=== PATIENT | male | born 1950 | race Caucasian/White ===

== ENCOUNTER → 2021-08-10 09:04 | Outpatient (CLI) | payer MEDICARE, OTHER, SELFPAY ==
--- NOTE | 2021-08-10 09:07 | DI.RAD.S_ITS ---
PROCEDURE: FL BARIUM SWALLOW INDICATIONS: dysphagia COMPARISON: None. FINDINGS: Function: There is normal esophageal peristalsis. No elicited gastroesophageal reflux. Morphology: Air-contrast images irregular stenosis of the distal esophagus at the gastroesophageal junction. Irregular narrowing involves the distal 6 centimeters of the esophagus and the esophagus is narrowed to 9 millimeters in diameter. IMPRESSION: Irregular stenosis of the distal esophagus at the GE junction highly suspicious for esophageal carcinoma. Recommend gastroenterology consultation for endoscopy and potential biopsy. Dictated by: Katie Garcia MD, PhD on 08/10/2021 at 12:05 Approved by: Katie Garcia MD, PhD on 08/10/2021 at 12:21
[2021-08-10 12:24] LABS: Add Manual Diff / Slide Review NO; Basophils Absolute Auto 0 /uL (0-100); Basophils Percent Auto 0.7 % (0-2); Eosinophils Absolute Auto 300 /uL (0-450); Eosinophils Percent Auto 4.3 % (2-4); Hematocrit 36.9 % (41-53); Hemoglobin 12.3 g/dL (13.5-17.5); Lymphocytes Absolute Auto 1200 /uL (1100-4500); Lymphocytes Percent Auto 18.2 % (25-40); Mean Corpuscular HGB Conc 33.2 % (30-36); Mean Corpuscular Hemoglobin 30.3 PG (26-34); Mean Corpuscular Volume 91.3 fL (80-100); Monocytes Absolute Auto 700 /uL (0-900); Neutrophils Absolute Auto 4200 /uL (1500-7000); Neutrophils Percent Auto 65.8 % (50-75); Platelet Count 302 X10^3/uL (150-400); Red Blood Cell Count 4.04 X10^6/uL (4.5-5.9); Red Cell Distribution Width 13.9 % (11.6-14.8); White Blood Cell Count 6.3 X10^3/uL (4.5-11.0)
[2021-08-10 13:47] LABS: Alanine Aminotransferase 16 IU/L (<50); Albumin 3.6 g/dL (3.5-5.0); Albumin Globulin Ratio 1.4 (1.0-2.8); Alkaline Phosphatase 96 U/L (38-126); Aspartate Aminotransferase 28 IU/L (17-59); BUN Creatinine Ratio 11.9 (6-22); Bilirubin Total 0.5 mg/dL (0.2-1.3); Blood Urea Nitrogen 12 mg/dL (9-20); Calcium 9.1 mg/dL (8.4-10.2); Carbon Dioxide 26 mmol/L (22-32); Chloride 108 mmol/L (98-107); Cholesterol 109 mg/dL (140-199); Estimated Glomerular Filt Rate > 60.0 mL/min (>60); Globulin 2.5 g/dL (1.7-4.1); Glucose 88 mg/dL (80-110); HDL Cholesterol 33 mg/dL (40-60); HEMOLYSIS < 15 (0-50); LDL Cholesterol Calculated 56 mg/dL (<100); Potassium 4.9 mmol/L (3.4-5.1); Sodium 139 mmol/L (137-145); Total Protein 6.1 g/dL (6.3-8.2); Triglycerides 98 mg/dL (35-150)
== END ==
PROVIDERS: Family Provider Internal Medicine; PCP Internal Medicine; Referring Provider Internal Medicine; Visit Provider Internal Medicine
DX: R13.10 Dysphagia, unspecified (principal); K22.2 Esophageal obstruction; Z13.1 Encounter for screening for diabetes mellitus; Z13.220 Encounter for screening for lipoid disorders; Z13.6 Encounter for screening for cardiovascular disorders
CPT/HCPCS: 36415; 74221; 80053; 80061; 85025

== ENCOUNTER → 2021-08-17 10:26 | Outpatient (CLI) | payer MEDICARE, OTHER, SELFPAY | PROVIDERS: Family Provider Internal Medicine; PCP Internal Medicine; Referring Provider Internal Medicine; Visit Provider Internal Medicine | DX: R13.10 Dysphagia, unspecified (principal); K22.89 Other specified disease of esophagus; Z53.8 Procedure and treatment not carried out for other reasons | CPT/HCPCS: 71260; 74160 ==

== ENCOUNTER → 2021-08-18 14:15 | Outpatient (CLI) | payer MEDICARE, OTHER, SELFPAY ==
[2021-08-18 14:38] LABS: COVID19 -Nasal RAPID Negative (Negative)
== END ==
PROVIDERS: Family Provider Internal Medicine; PCP Internal Medicine; Referring Provider Surgery; Visit Provider Surgery
DX: Z01.812 Encounter for preprocedural laboratory examination (principal); Z20.822 Contact with and (suspected) exposure to COVID-19; R13.19 Other dysphagia
CPT/HCPCS: 87635; 99212; C9803; G0463

== ENCOUNTER 2021-08-20 08:49 | Day surgery (SDC) | payer MEDICARE, OTHER, SELFPAY ==
--- NOTE | 2021-08-20 | PATH_ITS ---
[facility] Accession Number: [id number] . 01 Material submitted: . esophagus - ESOPHAGEAL MASS . 02 Diagnosis: Esophageal Mass, Biopsies: Invasive adenocarcinoma, moderately differentiated, intestinal type. Negative for intestinal metaplasia on AB/PAS stain. Positive (3+) for HER2 overexpression by immunohistochemistry. . RESULTS: HER2 (4B5): Positive (3+). . COMMENT: Testing performed on Block Number: A1. The criteria used is based on the ToGA Trial 6 for Scoring HER2 Expression by Immunohistochemistry (IHC) in Gastric and Esophagogastric Junction Adenocarcinoma. . *This test was developed and its performance characteristics determined by [facility]. It has not been cleared or approved by the U.S. Food and Drug Administration. The FDA has determined that such clearance or approval is not necessary. This test is used for clinical purposes. It should not be regarded as investigational or for research. MRV 08/27/2021 1303 Local . 02 Comment: As part of routine quality management coordinator, Dr. Garcia has reviewed this case and agrees with the diagnosis of invasive adenocarcinoma. The finding of adenocarcinoma was discussed between Dr. Moody and Dr. Mayfield on 08/26/2021. . 02 Electronically signed: . Robert Mayfield MD, PhD, Pathologist NPI- [id number] . 01 Gross description: . The specimen is received in formalin, labeled esophageal mass and consists of three mcgee-pink fragments of soft tissue measuring 0.8 x 0.7 x 0.2 cm in aggregate. The specimen is entirely submitted in cassette A1. (EA:[id number]) /MRV 08/21/2021 1231 Local . 02 Microscopic: . A. An AB/PAS stain is performed to evaluate for intestinal metaplasia, and is negative for goblet cells. A control stain shows appropriate reactivity. . 02 Pathologist provided ICD-10: C15.9 . 02 CPT . 043144, [id number], [id number] Performed at: 01 [facility] [address] [place] [address], [place], [place] [id number] MD Yon Mercedes MD Phone: [phone] Performed at: 02 [facility] [address] [place], [place] [id number] MD Noelle Garcia MD Phone: [phone]
[2021-08-20 09:07] VITALS: BP 131/77; PULSE 69; RESP 16; TEMP 36.4; O2SAT 98; BMI 29.5
[2021-08-20] MEDS: LACTATED RINGERS 1,000 ML 42 ML IV (09:20)
--- NOTE | 2021-08-20 10:15 | PM.PREOP ---
Pre-operative Note COVID-19 COVID-19 status: Negative Result date/Date tested (Pos, Neg/Pending): 08/18/21 Interval Note History & Physical reviewed/Exam performed by Physician: Yes Changes to H&P: No ASA Class (for procedural sedation): II
[2021-08-20] MEDS: LIDOCAINE 4% SOLN 50 ML 20 ML TOP (10:24)
[2021-08-20] MEDS: fentaNYL 250 MCG/5 ML INJ IV (10:25)
[2021-08-20] MEDS: MIDAZOLAM 5 MG/5 ML VIAL IV (10:27)
--- NOTE | 2021-08-20 10:39 | PM.OP.EGD ---
Operative Date/Time/Diagnoses Date of procedure: 08/20/21 Time of procedure: 10:39 Pre-op diagnosis: Dysphagia Post-op diagnosis: same Procedure & Clinicians Study performed: Esophagogastroduodenoscopy Same procedure as scheduled: Yes Indications: Dysphagia and esophageal mass on imaging Surgeon: Eliazar Moody Procedure Notes SCOAP/Timeout: Yes Procedure in detail: A timeout was performed. A bite blocked was placed. The patient was positioned in the left lateral decubitus position. The endoscope was inserted through the bite block passed down the esophagus. There is a large fungating mass in the distal esophagus. The scope could not be safely passed through the stricture into the stomach. Multiple biopsies were taken from the mass using forceps. Remainder of the esophagus was normal. The scope was withdrawn. The patient was awakened and brought to recovery. Findings: possible cancer Impression: Distal esophageal mass concerning for esophageal cancer Post-procedure Disposition: PACU
[2021-08-20 10:42] VITALS: BP 119/82; PULSE 69; RESP 17; TEMP 36.3; O2SAT 89
[2021-08-20 10:43] VITALS: BP 119/66; PULSE 81; RESP 20; O2SAT 95
[2021-08-20 10:48] VITALS: BP 113/72; PULSE 51; RESP 17; O2SAT 98
[2021-08-20 10:53] VITALS: BP 101/75; PULSE 56; RESP 16; TEMP 36.5; O2SAT 98
--- NOTE | 2021-08-20 11:00 | SUR.PHASEI ---
Patient had upper endoscopy and a mass was seen concerning cancer. Dr Moody talked with patient. Will order tests for him, and was told to only drink liquids. Dr Modoy talked with patients
[2021-08-20 11:03] VITALS: BP 112/64; PULSE 60; RESP 14; TEMP 36.4; O2SAT 99
== END 2021-08-20 11:24 | disposition home or self-care (01) ==
PROVIDERS: Family Provider Internal Medicine; PCP Internal Medicine; Referring Provider Surgery; Visit Provider Surgery
PROC: 0DJ08ZZ Inspection of Upper Intestinal Tract, Via Natural or Artificial Opening Endoscopic (ICD-10-PCS; CPT 43235; principal; 2021-08-20 10:15)
DX: C15.9 Malignant neoplasm of esophagus, unspecified (principal)
CPT/HCPCS: 43239; J2250; J3010

== ENCOUNTER → 2021-08-31 10:40 | Outpatient (CLI) | payer MEDICARE, OTHER, SELFPAY ==
--- NOTE | 2021-08-31 10:43 | DI.CT.S_ITS ---
PROCEDURE: CT CHEST ABD PEL W CON INDICATIONS: Esophageal neoplasm TECHNIQUE: After the administration of oral and intravenous contrast, axial sections acquired from the supraclavicular neck to the pubic symphysis. Coronal and sagittal reformats were performed. For radiation dose reduction, the following was used: automated exposure control, adjustment of mA and/or kV according to patient size. COMPARISON:None. FINDINGS: Image quality: Excellent. CHEST: Lower Neck: No enlarged lymph nodes. Thyroid: Within normal limits. Axillae: No enlarged lymph nodes. Chest Wall: Atrophy of the right supraspinatus musculature. Lungs and Airways: Multiple small spiculated nodules highly suspicious for metastatic disease. For example: -left upper lobe 0.8 cm, (3/88). -left lower lobe 0.8 cm, (3/198). -right lower lobe 1.4 cm, (3/235). Airways are clear. Pleura: No pneumothorax or pleural effusions. Heart: Heart size is normal. No pericardial effusion. Thoracic Vessels: The aorta and pulmonary arteries demonstrate normal size. Mediastinum and Joana: -Left hilar node measuring 1 cm, (2/28). This node or an adjacent node is partially calcified. Calcified prevascular node. -Right lower paraesophageal node measuring 0.9 cm, (2/53). -Right upper paratracheal/paraesophageal node measuring 1.9 cm, (2/11). Esophagus: Distal esophageal wall thickening. Apparent narrowing of the distal esophagus. There is trace fluid in the lower esophagus. Small hiatal hernia. ABDOMEN: Liver: Multiple hypodense hepatic lesions. For example: -segment 3 measuring 3 cm, (2/56). -segment 4 anterior measuring 1.8 cm, (2/53). Small calcified granuloma. Gallbladder: Unremarkable. Biliary ducts: Unremarkable. Pancreas: Unremarkable. Spleen: No splenomegaly. Calcified granuloma. Adrenal Glands: No nodule. Kidneys and Ureters: No hydronephrosis. Stomach and Bowel: Thickening at the gastric cardia, (2/55). Tiny duodenal diverticuli. No small bowel obstruction. Diverticulosis. Peritoneum: No abnormal intraperitoneal fluid. No free air. Ventral Wall: No hernia. Abdominal Nodes: Multiple small perigastric nodes. A larger node with a short axis diameter of 1.3 cm, (2/58). Vessels: Aorta and inferior vena cava are normal in size. PELVIS: Pelvic Organs: Prostatomegaly. Bladder: Unremarkable. Pelvic Nodes: No enlarged lymph nodes. Miscellaneous: Fat containing left inguinal hernia. Bones: Lower lumbar spine DDD. No suspicious lesion identified. IMPRESSION: 1. Abnormal thickening at the lower esophagus and gastric cardia. This is in keeping with esophageal malignancy. 2. Numerous spiculated pulmonary nodules highly suspicious for metastatic disease. 3. Enlarged upper paratracheal/paraesophageal node highly suspicious for metastatic disease. Small additional lower paraesophageal and perigastric nodes are also very suspicious. Left hilar node is indeterminate. 4. Multiple hypodense hepatic metastases. 5. No osseous lesions identified. Dictated by: Son Miles M.D. on 08/31/2021 at 11:35 Approved by: Son Miles M.D. on 08/31/2021 at 11:55
== END ==
PROVIDERS: Family Provider Internal Medicine; PCP Internal Medicine; Referring Provider Surgery; Visit Provider Surgery
DX: D49.0 Neoplasm of unspecified behavior of digestive system (principal); K44.9 Diaphragmatic hernia without obstruction or gangrene; R91.8 Other nonspecific abnormal finding of lung field; K76.9 Liver disease, unspecified; K57.90 Diverticulosis of intestine, part unspecified, without perforation or abscess without bleeding; N40.0 Benign prostatic hyperplasia without lower urinary tract symptoms; K40.90 Unilateral inguinal hernia, without obstruction or gangrene, not specified as recurrent
CPT/HCPCS: 71260; 74177

== ENCOUNTER → 2021-09-07 09:23 | Outpatient (CLI) | payer MEDICARE, OTHER, SELFPAY ==
[2021-09-07 11:18] LABS: COVID19 -Nasal RAPID Negative (Negative)
== END ==
PROVIDERS: PCP Internal Medicine; Visit Provider Internal Medicine Gastroenterology
DX: Z20.822 Contact with and (suspected) exposure to COVID-19 (principal)
CPT/HCPCS: 87635

== ENCOUNTER → 2021-09-14 09:18 | Outpatient (CLI) | payer MEDICARE, OTHER, SELFPAY ==
[2021-09-14 11:36] LABS: COVID19 -Nasal RAPID Negative (Negative)
== END ==
PROVIDERS: PCP Internal Medicine; Referring Provider Surgery; Visit Provider Surgery
DX: Z01.812 Encounter for preprocedural laboratory examination (principal); Z20.822 Contact with and (suspected) exposure to COVID-19
CPT/HCPCS: 87635; C9803

== ENCOUNTER 2021-09-15 06:08 | Day surgery (SDC) | payer MEDICARE, OTHER, SELFPAY ==
[2021-09-09 14:51] VITALS: BMI 30.4
[2021-09-15] VITALS (8 sets, daily range): BP systolic 103–144; BP diastolic 53–82; PULSE 48–71; RESP 10–16; TEMP 36.2–36.6; O2SAT 92–100; BMI 28.0
[2021-09-15] MEDS: LACTATED RINGERS 1,000 ML 42 ML IV (07:06)
--- NOTE | 2021-09-15 07:40 | PM.PREOP ---
Pre-operative Note COVID-19 COVID-19 status: Negative Result date/Date tested (Pos, Neg/Pending): 09/15/21 Criteria for continued procedure: Expected advancement of disease process and Delay expected to result in less-positive ultimate med/surg outcome Interval Note History & Physical reviewed/Exam performed by Physician: Yes Changes to H&P: No ASA Class (for procedural sedation): II
--- NOTE | 2021-09-15 07:46 | PM.HP.1 ---
History of Present Illness History of Present Illness Date Patient Seen: 09/15/21 Time Patient Seen: 07:46 Chief complaint: SDC Narrative: HEATHER is a 71-year-old man who was recently diagnosed with esophageal cancer on and EGD. The EGD was performed due to dysphagia. He has been seen by the medical oncologist and a port has been requested to facilitate chemotherapeutics. He has never had surgery on his neck and he has never had a clavicle fracture. Patient History Surgical History (Updated 09/07/21 @ 15:28 by Nette Louie RN) History of esophagogastroduodenoscopy (EGD) (08/20/21) Family & Social History Social History: household members spouse Tobacco & Substance use: Smoking Status Never smoker alcohol intake current alcohol intake frequency a few times a week Substance Use Type does not use Meds Home Medications and Allergies Home Medications Medication Instructions Recorded Confirmed Type No Known Home Medications 08/03/21 09/14/21 History Allergies Allergy/AdvReac Type Severity Reaction Status Date / Time No Known Drug Allergies Allergy Verified 09/15/21 06:42 Exam Vital Signs (past 8 hours): - 09/15/21 06:51 Temperature 97.5 F L Pulse Rate 71 Respiratory Rate 16 Blood Pressure 136/82 Pulse Oximetry 99 Oxygen Delivery Method Room Air Const General: comfortable Neck Neck: normal visual inspection Chest Chest: normal inspection of the chest Resp Effort & Inspection: normal respiratory effort Assessment & Plan Assessment and plan (1) 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 We will perform a port for chemo. We reviewed the risks and benefits and he would like to proceed. He will see Dr. Mayorga again tomorrow to figure out a chemo regimen. COVID-19 COVID-19 status: Negative Result date/Date tested (Pos, Neg/Pending): 09/14/21 Time Spent With Patient Critical Care time: I spent a total of [] minutes of critical care time on this patient's care today; this time is exclusive of procedural time.
[2021-09-15] MEDS: CEFAZOLIN 2 GM/20 ML SYRINGE IV (08:00)
--- NOTE | 2021-09-15 08:20 | SUR.OPER ---
Supine on padded OR bed, head on gel donut, left arm secured on padded arm boards at <90 degrees abduction, right arm padded with gel pad and tucked at side, legs uncrossed, safety belt at thigh, tape over blanket over lower legs. Rolled towel placed between shoulder blades.
--- NOTE | 2021-09-15 08:21 | SUR.OPER ---
Patients glasses in black glass case with patient label placed in patients belongings bag in preop area.
[2021-09-15] MEDS: LIDOCAINE 1% W/EPI 20 ML INJ (08:26)
[2021-09-15] MEDS: BUPIVACAINE 0.5% (PF) VIAL 30 ML INJ (08:26)
[2021-09-15] MEDS: HEPARIN 5,000 UNIT, SODIUM CHLORIDE 0.9% 50 ML IV (08:27)
--- NOTE | 2021-09-15 08:59 | PM.OP.1 ---
Operative Date/Time/Diagnoses Date of procedure: 09/15/21 Time of procedure: 08:59 Pre-op diagnosis: Esophageal cancer Post-op diagnosis: same Procedure & Clinicians Procedure: Port-A-Cath Same procedure as scheduled: Yes Indications: Esophageal cancer Surgeon: Eliazar Moody Click Yes if Unassisted: Yes Anesthesia Type: General Operative Notes Estimated Blood Loss (mL): 11 Procedure in detail: The patient was brought to the operating room, placed on the table in the supine position with the arms tucked. Ancef was administered. Anesthesia was induced via LMA. A time-out was performed. The right chest and neck were prepped and draped in the usual fashion. An ultrasound was used to identify the right internal jugular vein. The vein was noted to be patent. An image was saved and printed and placed in the chart. The right internal jugular vein was accessed via the Seldinger technique under ultrasound guidance. The guidewire was inserted into the superior vena cava. C-arm was used to confirm proper position of the guidewire in the superior vena cava and no ectopy was noted. The needle was removed and the wire was clamped to the drape. Next, a port pocket was created just inferior to the medial clavicle using a 15 blade scalpel. Dissection was carried down to the pectoral fascia. A subcutaneous pocket was created using a combination of cautery and blunt dissection. Next, the port which was primed with injectable saline, was secured to the fascia with 3-0 PDS sutures left untied and clamped. The neck incision was extended with an 11 blade scalpel to approximately 5 mm. The dilator and peel-away sheath were inserted over the wire without resistance. The catheter was passed from the neck incision to the chest incision in the subcutaneous tissue using the tunnelling device. The wire and dilator were then removed and the catheter inserted through the peel-away sheath to deliver it into the superior vena cava. The depth of the device was checked using the C-arm and the tip of the device was noted to be in the distal superior vena cava. The exterior portion of the catheter was then trimmed and attached to the port using the strain relief collar. A final image showed good position of the catheter with no kinks. The port was then tucked into the subcutaneous pocket and the sutures were tied to secure the device. The port was then accessed using the Mora needle and it was noted that the device robb and flushed easily without resistance. Approximately 4 mL of heparinized saline were injected into the device. The skin incisions were closed with 3-0 Vicryl and 4-0 Monocryl. Steri-Strips were applied patient was awakened and brought to recovery room EBL: 5 mL Ultrasound: The right internal jugular vein was patent. The right carotid artery was visualized adjacent to the vein. Venipuncture was visualized in real-time using the ultrasound. Fluoroscopy: The device was positioned appropriately with the distal end of the catheter near the atriocaval junction. There were no kinks in the catheter. Post-operative Condition: stable Disposition: PACU
--- NOTE | 2021-09-15 09:14 | SUR.PHASEI ---
Dr Graff to bedside. Viewed patient telemetry strip. SR with PAC. No new orders. Pt eating ice, denies pain, denies SOB.
--- NOTE | 2021-09-15 09:15 | DI.RAD.S_ITS ---
PROCEDURE: XR CHEST 1V INDICATIONS: PORT A CATH PLACEMENT TECHNIQUE: One view of the chest was acquired. COMPARISON: [facility], CT, CT CHEST ABD PEL W CON, 08/31/2021, 10:54. FINDINGS: Surgical changes and devices: A right-sided chest port is seen, with the tip seen overlying the inferior aspect of the superior vena cava, 1-2 cm above the cavoatrial junction. Lungs and pleura: On this semiupright portable chest examination, no large pneumothorax or large pleural effusions are seen. No focal infiltrates are seen. Low lung volumes are noted. This causes a crowded appearance to the lung markings and limits evaluation. Mediastinum: Mediastinal contours appear normal. Heart size is normal. Bones and chest wall: No suspicious bony lesions. Age-appropriate bony degenerative changes are seen. Overlying soft tissues appear unremarkable. IMPRESSION: The tip of the right-sided chest port is seen overlying the inferior aspect of the superior vena cava. Dictated by: Apollo Altamirano M.D. on 09/15/2021 at 8:35 Approved by: Apollo Altamirano M.D. on 09/15/2021 at 8:36
--- NOTE | 2021-09-15 09:25 | SUR.PHASEI ---
Dr Moody at bedside to update patient. Viewed patient telemetry rhythm. CXR normal. Pt may be discharged at this time.
--- NOTE | 2021-09-15 10:21 | SUR.PHASEI ---
Late entry: Report from Loyda Paul who accepted pt, rejiay called, pt w/o complaints, follows simple commands, report then given to Ingrid. Andrew RN
== END 2021-09-15 09:58 | disposition home or self-care (01) ==
PROVIDERS: PCP Internal Medicine; Referring Provider Surgery; Visit Provider Surgery
PROC: (CPT 36561; principal; 2021-09-15 07:45)
DX: C15.9 Malignant neoplasm of esophagus, unspecified (principal); C78.7 Secondary malignant neoplasm of liver and intrahepatic bile duct
CPT/HCPCS: 36561; 71045; 76000; C1788; J0690; J1644; J2250; J2405; J2704; J3010